=== PATIENT | female | born 1995 | race Caucasian/White ===

== ENCOUNTER 2019-07-22 13:49 | Outpatient (REF) | payer BC, SELFPAY ==
--- NOTE | 2019-07-22 13:15 | PAPFT_PTH ---
PATIENT: Abimbola Ceballos LOC: [facility] U#:[id number] AGE/SX: 24/F ROOM: RE07/22/[address]: MELVIN Oates : 1995 BED: DIS: 07/22/2019 SPEC #: [id number] RECD: 07/22/19 18:02 STATUS: CHAUNCEY REStefany #: [id number] LISANDRO: 07/22/19 13:[address]: Mayte Newman DEPT: [facility] Cytology RECD BY: Jenifer Sahu ENTERED: 07/22/19 18:02 SP TYPE: PAPFT OTHR DR: Lucina Peraza Tissues: 1 - CX/ENDOCX FOR PAP SMEARS Procedures: PAP THIN PREP/[facility] Screening Comments: [id number]
== END 2019-07-22 14:09 ==
LOC: LBN 13:49
PROVIDERS: PCP Nurse Practitioner Family; Visit Provider Nurse Practitioner Family
DX: Z12.4 Encounter for screening for malignant neoplasm of cervix (principal)
CPT/HCPCS: 88142

== ENCOUNTER 2021-03-02 01:19 | Outpatient (CLI) | payer SELFPAY ==
--- NOTE | 2021-03-02 07:33 | DI.RAD_ITS ---
Exam(s) XR TOE RT GREAT EXAM: XR TOE RT GREAT CLINICAL HISTORY: intermittent right great toe pain,m79.674,. TECHNIQUE: 2D digital imaging was performed. Three views were obtained. AP, and lateral views were obtained. COMPARISON: No exams were available for comparison FINDINGS: BONES: No acute fracture is present. No bony destructive lesion is seen. JOINTS: No dislocation present. The joints are well maintained. SOFT TISSUE: Normal. IMPRESSION: No evidence of acute fracture, dislocation, or subluxation. DATA REPOSITORY: RADIATION DOSE DELIVERED:
== END 2021-03-02 01:39 ==
PROVIDERS: PCP Nurse Practitioner; Visit Provider Nurse Practitioner
DX: M79.674 Pain in right toe(s) (principal); G89.29 Other chronic pain
CPT/HCPCS: 73660

== ENCOUNTER 2021-03-02 02:09 | Outpatient (CLI) | payer SELFPAY ==
[2021-03-02 13:35] LABS: Absolute Basophil Count 0.04 10^3/uL (0.0-0.2); Absolute Eosinophil Count 0.06 10^3/uL (0.0-0.7); Absolute Lymphocyte Count 1.56 10^3/uL (1.2-3.4); Absolute Monocyte Count 0.32 10^3/uL (0.1-0.8); Absolute Neutrophil Count 1.63 10^3/uL (1.2-6.7); Basophils % 1.1; Eosinophils % 1.7; HCT 37.5 % (36.0-46.0); HGB 13.1 g/dL (11.2-15.7); Lymphocytes % 43.2; MCH 31.9 pg (27.0-33.0); MCHC 34.9 % (32.0-36.0); MCV 91.2 fL (80-95); MPV 10.4 fL (8.0-11.0); Monocytes % 8.9; Neutrophils % 45.1; Nucleated RBC 0 %; Platelet Count 222 10^3/uL (130-400); RBC 4.11 10^6/uL (3.93-5.22); RDW 11.3 % (11.7-14.6); RDW-SD 37.5 fL; WBC 3.61 10^3/uL (4.4-10.8)
[2021-03-02 13:52] LABS: Hemoglobin A1C 4.6 % (<5.7)
[2021-03-02 14:18] LABS: Uric Acid 5.1 mg/dL (2.6-6.0)
[2021-03-02 14:46] LABS: ALT 19 U/L (14-59); AST 11 U/L (15-37); Albumin 4.3 g/dL (3.4-5.0); Alkaline Phosphatase 58 U/L (46-116); Anion Gap 9.5 mmol/L (3-11); BUN 19 mg/dL (7-18); Bilirubin, Total 0.6 mg/dL (0.2-1.0); CO2 27.5 mmol/L (21.0-32.0); CREATININE 1.1 mg/dL (0.55-1.02); Calcium 9.3 mg/dL (8.5-10.1); Calculated LDL 118 mg/dL (<100); Chloride 105 mmol/L (98-107); Cholesterol 192 mg/dL (<200); Estimated GFR 59.58 (mL/min/1.73m2); Ferritin 61 ng/mL (8-252); Glucose 88 mg/dL (74-106); HDL Cholesterol 68 mg/dL (40-60); Magnesium 2.1 mg/dL (1.8-2.4); Potassium 3.8 mmol/L (3.5-5.1); Sodium 142 mmol/L (136-145); Total Protein 7.4 g/dL (6.4-8.2); Triglyceride 34 mg/dL (<150); Vitamin B12 1666 pg/mL (193-986)
[2021-03-02 14:47] LABS: Folate > 20.0 ng/mL (8.6-20.0)
[2021-03-02 15:52] LABS: C-Reactive Protein < 0.05 mg/dL (0.0-0.3); FREE T4 1.13 ng/dL (0.76-1.46)
[2021-03-02 21:52] LABS: T3,Free 3.7 pg/mL (2.8-5.3)
[2021-03-05 02:58] LABS: Vitamin D 25 Total 27.2 ng/mL (30-100)
== END 2021-03-02 02:10 | disposition home or self-care (01) ==
LOC: LBO 02:09
PROVIDERS: Psychiatry & Neurology Psychiatry; PCP Nurse Practitioner; Visit Provider Nurse Practitioner
DX: F31.9 Bipolar disorder, unspecified (principal); Z79.899 Other long term (current) drug therapy; M79.674 Pain in right toe(s); G89.29 Other chronic pain
CPT/HCPCS: 36415; 80053; 80061; 82306; 82607; 82728; 82746; 83036; 83735; 84439; 84443; 84481; 84550; 85025; 86140

== ENCOUNTER 2022-02-22 16:18 | Outpatient (CLI) | payer OTHER, SELFPAY ==
[2022-02-22 12:18] LABS: HCT 33.7 % (36.0-46.0); HGB 11.3 g/dL (11.2-15.7); MCH 30.7 pg (27.0-33.0); MCHC 33.5 % (32.0-36.0); MCV 92 fL (80-95); MPV 10.2 fL (8.0-11.0); Platelet Count 209 10^3/uL (130-400); RBC 3.68 10^6/uL (3.93-5.22); RDW 11.9 % (11.7-14.6); RDW-SD 40.2 fL; WBC 4.73 10^3/uL (4.4-10.8)
[2022-02-22 12:49] LABS: Hemoglobin A1C 4.9 % (<5.7)
[2022-02-22 13:12] LABS: ALT 18 U/L (14-59); AST 11 U/L (15-37); Albumin 4.1 g/dL (3.4-5.0); Alkaline Phosphatase 68 U/L (46-116); Anion Gap 9.5 mmol/L (3-11); BUN 12 mg/dL (7-18); Bilirubin, Total 0.3 mg/dL (0.2-1.0); CO2 25.5 mmol/L (21.0-32.0); CREATININE 0.8 mg/dL (0.55-1.02); Calcium 8.7 mg/dL (8.5-10.1); Calculated LDL 91 mg/dL (<100); Chloride 106 mmol/L (98-107); Cholesterol 162 mg/dL (<200); Estimated GFR 102.86 (mL/min/1.73m2); Ferritin 60 ng/mL (8-252); Folate 10.8 ng/mL (8.6-20.0); Glucose 86 mg/dL (74-106); HDL Cholesterol 65 mg/dL (40-60); Magnesium 1.9 mg/dL (1.8-2.4); Potassium 3.5 mmol/L (3.5-5.1); Sodium 141 mmol/L (136-145); TSH 1.17 uIU/mL (0.36-3.74); Total Protein 7.4 g/dL (6.4-8.2); Triglyceride 34 mg/dL (<150); Vitamin B12 1075 pg/mL (193-986)
[2022-02-22 14:27] LABS: FREE T4 1.09 ng/dL (0.76-1.46)
[2022-02-22 19:37] LABS: T3,Free 3.8 pg/mL (2.8-5.3)
[2022-02-23 13:13] LABS: Copper, Serum 105 mcg/dL (77-206); Zinc, S 71 mcg/dL (60-106)
[2022-02-25 09:01] LABS: Homocysteine 9.1 umol/L (5.0-13.9)
== END 2022-02-22 16:19 | disposition home or self-care (01) ==
LOC: LBO 16:20
PROVIDERS: PCP Nurse Practitioner Adult Health; Visit Provider Psychiatry & Neurology Psychiatry
DX: F31.9 Bipolar disorder, unspecified (principal)
CPT/HCPCS: 36415; 80053; 80061; 82306; 82525; 83090; 84630; 85027; 82607; 82728; 82746; 83036; 83735; 84439; 84443; 84481

== ENCOUNTER 2022-09-09 12:53 | Emergency (ER) | payer OTHER, SELFPAY ==
[2022-09-09 13:01] VITALS: BP 119/86; PULSE 90; RESP 18; TEMP 36.8; O2SAT 98
[2022-09-09 13:33] LABS: Source Nasal/Nares
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
[2022-09-09 14:45] LABS: COVID-19 PCR Negative (Negative)
--- NOTE | 2022-09-09 16:10 | NUR.NOTE ---
Tata from [facility] at bedside
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
[2022-09-09 20:33] LABS: Abs Immature Grans 0.01 10^3/uL (0.0-0.06); Absolute Basophil Count 0.05 10^3/uL (0.0-0.2); Absolute Eosinophil Count 0.09 10^3/uL (0.0-0.7); Absolute Lymphocyte Count 2.91 10^3/uL (1.2-3.4); Absolute Monocyte Count 0.65 10^3/uL (0.1-0.8); Absolute Neutrophil Count 2.86 10^3/uL (1.2-6.7); Basophils % 0.8; Eosinophils % 1.4; HCT 36.5 % (36.0-46.0); HGB 12.6 g/dL (11.2-15.7); Immature Grans % 0.2; Lymphocytes % 44.3; MCH 31.7 pg (27.0-33.0); MCHC 34.5 % (32.0-36.0); MCV 92 fL (80-95); MPV 10.2 fL (8.0-11.0); Monocytes % 9.9; Neutrophils % 43.4; Platelet Count 261 10^3/uL (130-400); RBC 3.98 10^6/uL (3.93-5.22); RDW-SD 40.7 fL; WBC 6.57 10^3/uL (4.4-10.8)
[2022-09-09 20:35] LABS: Bilirubin Negative (Negative); Blood Trace-lysed (Negative); Clarity Clear (Clear); Glucose Negative (Negative); Ketones Negative (Negative); Leukocyte Esterase Negative (Negative); Nitrite Negative (Negative); Specific Gravity >= 1.030 (1.005-1.025); Urobilinogen 0.2 mg/dL (Up to 0.2); pH 5.5 (5-8)
[2022-09-09 20:42] LABS: Bacteria Few HPF (Negative); C & S Indicated? No/Sq. Contamination; Casts Negative LPF (Negative); Crystals Negative HPF (Negative); Epithelial Cells Moderate HPF (Negative); Mucus Negative (Negative); RBC 0-2 HPF (0-2)
[2022-09-09 20:46] LABS: *AMPHETAMINES SCREEN URINE Negative (Negative); *BARBITURATES SCREEN URINE Negative (Negative); *BENZODIAZEPINES SCREEN URINE Negative (Negative); Cannabinoids THC Negative (Negative); Cocaine Screen,Urine Negative (Negative); METHADONE URINE SCREEN Negative (Negative); OPIATES URINE SCREEN Negative (Negative); Tricyclic Antidepressants Negative (Negative)
[2022-09-09 21:00] LABS: ALT 21 U/L (14-59); AST 10 U/L (15-37); Albumin 3.7 g/dL (3.4-5.0); Alkaline Phosphatase 64 U/L (46-116); BUN 16 mg/dL (7-18); Bilirubin, Total 0.2 mg/dL (0.2-1.0); CREATININE 0.8 mg/dL (0.55-1.02); Calcium 8.5 mg/dL (8.5-10.1); Chloride 106 mmol/L (98-107); Estimated GFR 102.22 (mL/min/1.73m2); Glucose 89 mg/dL (74-106); Potassium 3.8 mmol/L (3.5-5.1); Sodium 140 mmol/L (136-145); TSH (W/Ref FT4) 0.85 uIU/mL (0.36-3.74); Total Protein 6.9 g/dL (6.4-8.2)
[2022-09-09] MEDS: Topiramate 25 MG TAB PO (21:00)
[2022-09-09] MEDS: Topiramate 50 MG TAB 25 MG PO ×2 (21:00→21:06)
[2022-09-09] MEDS: lamoTRIgine 100 MG TAB 200 MG PO (21:06)
--- NOTE | 2022-09-10 02:05 | W.EDPROG ---
Date of service: 09/10/22 Time of Service: 02:05 Medical Decision Making pt resting in no distress, no acute complaints, pending voluntary placement for depression/si. Will continue to monitor until placement is found Lab Data Lab results reviewed: Yes I reviewed the patient's lab results. Sign Out Sign Out Data: Sign Out Comment: Patient here voluntarily seeking psychiatric treatment. Patient is suicidal and high risk. Plan for transfer to psychiatric treatment facility when bed identified. Last updated by Nadir Washburn MD at 09/09/22 17:23 Sign Out Comment: psych awaiting placement Last updated by German Berumen MD at 09/10/22 00:11 Discharge Plan Disposition Condition: Stable Discharge Details Chief Complaint: PsychEval Clinical Impression: Depressive disorder Primary Care Provider: Elizabeth Meza ED Provider: Hernandez Frost Home Meds and New Rx's Prescriptions: No Action topiramate 25 mg tablet 25 mg PO DAILY lamotrigine 200 mg tablet 200 mg PO DAILY Vyvanse 20 mg capsule 20 mg PO QAM vitamin B complex [B Complex-Vitamin B12] Tablet 1 tab PO DAILY cholecalciferol (vitamin D3) PO DAILY AM Adult 50 Plus Probiotic 4 billion cell capsule 9.4 mmu cells PO DAILY omega-3 fatty acids 1,000 mg capsule 1,000 mg PO DAILY acetylcysteine 600 MG capsule 600 mg PO Qty: 2
--- NOTE | 2022-09-10 08:21 | CMSP_ITS ---
- If Service Date Differs Date of service: 09/10/22 Time of Service: 08:22 Care Management Safety Plan Status: Voluntary - Reason for Wait Reason for Wait: Inpatient Admission VOLUNTARY FOR INPATIENT PSYCHIATRIC STABILIZATION. Patient is appropriate in all interactions since arriving at [facility]; Pt has demonstrated appropriate coping and communication skills, has articulated his or her needs and concerns and is fully engaged during staff interactions. Safety plan has been established with patient, and care team, to adhere to patient goals, identify restrictions based on behavioral status, address nutrition, and determine allowed personal belongings, tools for hygiene and personal care. Determine level of activity including ambulation, level of supervision, visitors, and determine privileges based on behaviors and level of engagement by pt. SAFETY PLAN: 1. Will remain on suicide precautions. In Paper Clothes 2. Will remain in room under direct supervision of one-on-one staff at all times provided by [employer], GRIP WRAPPER, PLASTIC SURGERY TECHNICIAN petroleum refining equipment operator. 3. May have paper cups, plates, finger foods as well as a cardboard spoon with which to eat meals. 4. Follow [facility] Management of the Admitted Behavioral Health Patient policy. 5. Comfort bath system only, shower permitted with escort at RN discretion. 6. No personal belongings-soft items permitted at RN discretion. 7. Visitors-none at this time. 8. Activities: soft cart items, music tablet, television and other activities at RN discretion. 9. Bathroom privileges with escort in the ED, available in room without limitation on M/S. 10. Phone: contact limited to family at this time, via [employer] hospital phone at RN discretion. 11. Due to VOLUNTARY status, if patient wishes to leave [facility], staff will contact [facility] Crisis Screener ([phone]) and On-Call Unit Secy ([phone]) as soon as possible. In the event of elopement, notify [place] State [employer] ([phone]). Patient is currently voluntarily at [facility] and seeking inpatient admission when a bed becomes available. [facility] Frontline Museum Preparator will continue seeking placement. Please contact the Artillery Officer Unit Secy ([phone]) and [facility] Museum Preparator ([phone]) for any needed changes in the Safety Plan. Safety plan has been provided to interdepartmental care team.
--- NOTE | 2022-09-10 09:05 | W.EDPROG ---
Date of service: 09/10/22 Time of Service: 08:00 Medical Decision Making 0800 --please see Dr. Frost's note for initial presentation, exam and plan. Case endorsed to follow-up with mental health and receiving facilities for acceptance. Patient remains voluntary. No reported events overnight. 08 --Case discussed with Dr. Gilliland at [place] --accepts patient for transfer. Medical Records Medical records reviewed: Yes I reviewed the patient's medical records. Sign Out Sign Out Data: Sign Out Comment: Patient here voluntarily seeking psychiatric treatment. Patient is suicidal and high risk. Plan for transfer to psychiatric treatment facility when bed identified. Last updated by Nadir Washburn MD at 09/09/22 17:23 Sign Out Comment: psych awaiting placement Last updated by German Berumen MD at 09/10/22 00:11 Sign Out Comment: SI, voluntary, no issues overnight Last updated by Hernandez Frost MD at 09/10/22 02:06 Discharge Plan Disposition Patient Disposition: Psychiatric Hospital/Unit Specific Psychiatric Facility: [facility] Condition: Stable Discharge Details Chief Complaint: PsychEval Clinical Impression: Depressive disorder, Suicidal ideation Primary Care Provider: Elizabeth Meza ED Provider: Ramonita French Home Meds and New Rx's Prescriptions: No Action topiramate 25 mg tablet 25 mg PO DAILY lamotrigine 200 mg tablet 200 mg PO DAILY Vyvanse 20 mg capsule 20 mg PO QAM vitamin B complex [B Complex-Vitamin B12] Tablet 1 tab PO DAILY cholecalciferol (vitamin D3) PO DAILY AM Adult 50 Plus Probiotic 4 billion cell capsule 9.4 mmu cells PO DAILY omega-3 fatty acids 1,000 mg capsule 1,000 mg PO DAILY acetylcysteine 600 MG capsule 600 mg PO Qty: 2
--- NOTE | 2022-09-10 09:05 | NUR.NOTE ---
report called to Marian granda [place]
[2022-09-10 09:19] VITALS: BP 101/64; PULSE 88; RESP 18; TEMP 36.6; O2SAT 98
--- NOTE | 2022-09-10 09:51 | NUR.NOTE ---
Nursing Note: verified medication administration with Umer Che for 09/09/2022 - states she gave 25mg topiramate and 100mg Lamictal at 2106 per order and patient's direction
[2022-09-10] MEDS: lamoTRIgine 100 MG TAB PO (10:01)
--- NOTE | 2022-09-10 10:15 | CMPROGNOTE_ITS ---
- If Service Date Differs Date of service: 09/10/22 Time of Service: 10:15 Care Management Progress Note DISPOSITION: Abimbola is accepted for a voluntary admission by the [facility]. She will follow up with her PCP, [facility] and plan of care as instructed upon discharge from the [facility]. She is transported to [facility] by Ajay Falcon. - Status Status: Voluntary ([facility])
== END 2022-09-10 10:03 ==
PROVIDERS: Emergency Medicine; Student in an Organized Health Care Education/Training Program; Emergency Provider Physician Assistant; PCP Nurse Practitioner Adult Health
DX: R45.851 Suicidal ideations (principal); Z04.6 Encounter for general psychiatric examination, requested by authority; Z20.822 Contact with and (suspected) exposure to COVID-19; F32.A Depression, unspecified
CPT/HCPCS: 80053; 80307; 81025; 87635; 99285; 81003; 81015; 84443; 85025

== ENCOUNTER 2023-08-16 08:11 | Emergency (ER) | payer OTHER, SELFPAY ==
[2023-08-16 08:14] VITALS: BP 130/81; PULSE 100; RESP 16; TEMP 37.2; O2SAT 95
--- NOTE | 2023-08-16 08:26 | ED.GENADUL_ITS ---
Discharge Plan Disposition Patient Disposition: Home Condition: Stable Discharge Details Clinical Impression: Otorrhea of right ear, Otitis media Primary Care Provider: Elizabeth Meza ED Provider: Izabela Holder Home Meds and New Rx's Prescriptions: New amoxicillin-pot clavulanate 875-125 mg tablet 1 tab PO BID 10 Days Qty: 20 0RF No Action topiramate 25 mg tablet 25 mg PO HS lamotrigine 200 mg tablet 200 mg PO DAILY lisdexamfetamine [Vyvanse] 20 mg capsule 20 mg PO QAM Hold Instructions: not taking vitamin B complex [B Complex-Vitamin B12] Tablet 1 tab PO DAILY cholecalciferol (vitamin D3) PO DAILY AM PRN Adult 50 Plus Probiotic 4 billion cell capsule 9.4 mmu cells PO DAILY omega-3 fatty acids 1,000 mg capsule 1,000 mg PO DAILY acetylcysteine 600 MG capsule 600 mg PO ONCE Qty: 2 Discharge Instructions Instructions: Ear Infection (ED) Additional Instructions: Take the antibiotics as directed with yogurt or probiotic as directed. You may also use [id number] Flonase nasal spray once daily. Please take Tylenol or Ibuprofen with food every 4-6 hours as needed for pain and swelling. You have some fluid in your ear canal, some clear if you are eardrum is perforated or has burst. Please do not stick anything into your ear, no swimming or soaking. You should start feeling better in the next 2 to 3 days. Follow up with primary care provider in 3-5 days. Return to ED sooner if any worsening or concerns. Stand Alone Forms: Work Release Referrals: Elizabeth Meza, [facility] [Primary Care Provider] - 5 days HPI General Mode of arrival: ambulatory . Date/Time Provider Initiated Documentation: 08/16/23 08:25 . Limitations to Documentation: no limitations . Information obtained by: patient, RN notes reviewed and old records reviewed . HPI Narrative: 28 year old female presents to the ED with cc of right ear pain, and fluid draining from ear this am. Associated with Right side head pressure. On exam she does have fluid clear yellowish drainage from her right ear. Erythemic tympanic membrane, there is fluid noted. Unable to visualize perforation. Related Data Home Medications Medication Instructions Recorded Confirmed acetylcysteine 600 mg capsule 600 mg PO ONCE ##2 05/29/17 08/16/23 lamotrigine 200 mg tablet 200 mg PO DAILY 02/26/21 08/16/23 topiramate 25 mg tablet 25 mg PO HS 02/26/21 08/16/23 cholecalciferol (vitamin D3) PO DAILY AM PRN 05/30/22 08/05/22 lactobacillus combination no.9 4 9.4 mmu cells PO DAILY 05/30/22 08/16/23 billion cell capsule (Adult 50 Plus Probiotic) lisdexamfetamine 20 mg capsule 20 mg PO QAM 05/30/22 08/16/23 (Vyvanse) omega-3 fatty acids 1,000 mg 1,000 mg PO DAILY 05/30/22 08/16/23 capsule vitamin B complex (B 1 tab PO DAILY 05/30/22 08/16/23 Complex-Vitamin B12 tablet) amoxicillin 875 mg-potassium 1 tab PO BID 10 days #20 tabs 08/16/23 clavulanate 125 mg tablet Previous Rx's Medication Instructions Recorded amoxicillin 875 mg-potassium 1 tab PO BID 10 days #20 tabs 08/16/23 clavulanate 125 mg tablet Allergies Allergy/AdvReac Type Severity Reaction Status Date / Time Sulfa (Sulfonamide Allergy Intermediate red eyes Verified 08/16/23 08:18 Antibiotics) lora Allergy Rash on Verified 08/16/23 08:18 lips General Stated Complaint: EarProblem MILES: 4 Review of Systems All systems reviewed & are unremarkable except as noted in HPI and below Constitutional Constitutional: Reports headache(s) ENT Ears, Nose, Mouth, and Throat: Reports as per HPI, Reports ear discharge, Reports otalgia and Reports headache(s) Neurologic Neurologic: Reports headache(s) Exam [facility] Head: normal to inspection Ears: external ears normal, TM normal on the left, mastoids normal and TM abnormal wth effusion serous on the right, erythematous on the right, with fluid behind the TM on the right and with loss of landmarks on the right General nose exam: external nose normal Face and sinus: normal facial exam Mouth: oropharynx normal Course Vital Signs Vital signs: Vital Signs Temperature 37.2 C 08/16/23 08:14 Pulse 100 H 08/16/23 08:14 Respiratory Rate 16 08/16/23 08:14 Blood Pressure 130/81 08/16/23 08:14 Pulse Oximetry 95 08/16/23 08:14 Temperature 37.2 C 08/16/23 08:14 Temperature Source Temporal Artery Scan 08/16/23 08:14 Pulse 100 H 08/16/23 08:14 Respiratory Rate 16 08/16/23 08:14 Respiratory Effort Normal, Non-Labored 08/16/23 08:21 Blood Pressure 130/81 08/16/23 08:14 Blood Pressure Position Sitting 08/16/23 08:14 Pulse Oximetry 95 08/16/23 08:14 Oxygen Delivery Method Room Air 08/16/23 08:14 Oxygen Flow Rate 0 08/16/23 08:14 Pain Level 8 08/16/23 08:23 Medical Decision Making 28 year old female presents to the ED with cc of right ear pain, and fluid draining from ear this am. Associated with Right side head pressure. On exam she does have fluid clear yellowish drainage from her right ear. Erythemic tympanic membrane, there is fluid noted. Unable to visualize perforation. Augmentin and Ibuprofen given, Ottorhea noted, appears non-purulent, no blood. Unable to visualize perforation. Will treat for presumed otitis infection. Instructed to follow up with PCP, this text was generated using [employer] dictation system, please disregard any oddities of phrase or misspellings. Quality:SDOH Health Related Social Needs: No Data to Display PFSH All Active Problems (Updated 08/16/23 @ 08:37 by Izabela Holder NP) Otitis media (Acute) Otorrhea of right ear (Acute) Vapes nicotine containing substance (Acute) Depressive disorder (Chronic) Bipolar 1 disorder (Acute) Medical History Chronic toe pain, right foot Dysuria Anesthesia of skin Generalized hyperhidrosis Family History Mother Depression MS (multiple sclerosis) Anxiety Father Bipolar 1 disorder Anxiety Depression Brother Anxiety Depression Sister Anxiety Depression Paternal Uncle Cancer Maternal Grandfather Diabetes Maternal Aunt Breast cancer Social History Smoking/Tobacco Use Status: Current every day Tobacco Type: e-cigarettes Smokeless tobacco user: other (Vape) Quit status: considering quitting Smoking risk assessment performed?: Yes Alcohol Intake: current Alcohol Intake frequency: a few times a month Drug use: Never Substance use type: does not use Adopted: No Caregiver/Support person: No Foster care: No Household members: spouse Housing: apartment Number of Children: 0 Communication Needs: None Education Level: high school Do you need help understanding health information?: Often current occupation: [employer] Pets and animals: Yes (2) Pets and animals: cat(s) Sexually active: Yes Do you think of yourself as: bisexual Current gender identity: female What is your relationship status?: How often do you talk on the phone with friends or family?: three or more times per week How often do you get together with friends or relatives?: three or more times per week Do you belong to any clubs or organized social groups?: no Panel score (0-1 are the most socially isolated patients): 2 What type of physical activity do you participate in: none Porsha/Restorationism: Other Special porsha needs: No Seatbelt use: always Helmet use: Yes Helmet use: always Drive intox or ride w/intox route driver: No
[2023-08-16] MEDS: Amoxicillin 875/Clav. 125 TAB PO (08:34)
[2023-08-16] MEDS: Ibuprofen 600 MG TAB PO (08:34)
== END 2023-08-16 08:49 | disposition home or self-care (01) ==
PROVIDERS: Emergency Provider Registered Nurse Emergency; PCP Nurse Practitioner Adult Health
DX: H66.91 Otitis media, unspecified, right ear (principal); H92.11 Otorrhea, right ear
CPT/HCPCS: 99283